=== PATIENT | female | born 1995 | race Caucasian/White ===

== ENCOUNTER 2017-04-07 06:40 | Emergency (ER) | payer OTHER ==
[~2017-04-07] VITALS: Ht 157.5 cm; Wt 56.0 kg
[~2017-04-07 06:40] MED LIST: FAMO-18 PO; ONDA4TAB35 PO
[2017-04-07 06:46] VITALS: Ht 157.5 cm; Wt 56.0 kg
[2017-04-07] MEDS ORDERED: ONDANSETRON (ODT) 4 MG TAB ODT STA (07:04)
--- NOTE | 2017-04-07 07:11 | ERD ---
ER Documentation Chief Complaint Date/Time DATE: 04/07/17 TIME: 07:08 Chief Complaint vomitig, epigastric burnning HPI This is a 22-year-old female who presents to the emergency department today complaining of vomiting that started this morning. Patient states that she thinks that she ate something bad last night and reported eating steak, green beans and rice and that is what she was throwing up. States she has been seen here in the past for similar symptoms one year ago. States that she has some burning pain. States that she also has a headache. Denies any fevers or chills , dysuria, diarrhea. States that she smokes marijuana multiple times daily. ROS All systems reviewed and are negative except as per history of present illness. Medications Home Meds Active Scripts Ondansetron Hcl* (Zofran*) 4 Mg Tablet, 4 MG PO Q6H for NAUSEA AND/OR VOMITING, #30 TAB Prov:SHERRY LITTLE PA-C 04/07/17 Famotidine* (Pepcid*) 20 Mg Tablet, 20 MG PO BID for 10 Days, TAB Prov:SHERRY LITTLE PA-C 04/07/17 Famotidine* (Pepcid*) 20 Mg Tablet, 20 MG PO BID Y for abdominal pain, #30 TAB Prov:АНДРЕЙ PALACIO MD 12/28/15 Ondansetron Hcl* (Zofran* ODT) 4 mg -ODT Tab.disper, 4 MG PO Q6 Y for NAUSEA AND /OR VOMITING, #20 TAB Prov:АНДРЕЙ PALACIO MD 12/28/15 Allergies Allergies: Coded Allergies: No Known Drug Allergies (Verified Allergy, Unknown, 12/28/15) PMhx/Soc Medical and Surgical Hx: pt denies Medical Hx, pt denies Surgical Hx Hx Alcohol Use: No Hx Substance Use: No Hx Tobacco Use: No Physical Exam Vitals Vital Signs Date Time Temp Pulse Resp B/P Pulse Ox O2 Delivery O2 Flow Rate FiO2 04/07/17 06:46 97.7 74 18 133/74 99 Physical Exam Const: No acute distress, nontoxic-appearing head: Atraumatic Eyes: Normal Conjunctiva ENT: Normal External Ears, Nose and Mouth. Neck: Full range of motion..~ No meningismus. Resp: Clear to auscultation bilaterally Cardio: Regular rate and rhythm, no murmurs Abd: Soft, epigastric tenderness non distended. Normal bowel sounds. No right lower quadrant pain. No tenderness McBurney's. Skin: No petechiae or rashes Back: No midline or flank tenderness Neur: Awake and alert Psych: Normal Mood and Affect Results 24 hrs Laboratory Tests Test 04/07/17 07:20 Bedside Urine pH (LAB) 5.5 Bedside Urine Protein (LAB) Negative Bedside Urine Glucose (UA) Negative Bedside Urine Ketones (LAB) Negative Bedside Urine Blood Trace-intact Bedside Urine Nitrite (LAB) Negative Bedside Urine Leukocyte Esterase (L Negative Current Medications Medications (Trade) Dose Ordered Sig/Homer Route PRN Reason Start Time Stop Time Status Last Admin Dose Admin Ondansetron HCl (Zofran Odt) 4 mg ONCE STAT ODT 04/07/17 07:04 04/07/17 07:05 DC 04/07/17 07:15 Famotidine (Pepcid) 20 mg ONCE ONCE PO 04/07/17 07:30 04/07/17 07:31 DC 04/07/17 07:15 Procedures/MDM This 22-year-old female who presents the emergency department today complaining of vomiting that started this morning as well as some epigastric burning and headache. I did obtain a UA and urine test UA is negative for infection. Urine test is negative. Patient had epigastric pain on physical exam. She has no right upper quadrant pain and no right lower quadrant pain or tenderness McBurney's. low suspicion for acute surgical abdomen, acute cholecystitis or acute appendicitis. Patient is afebrile and otherwise well-appearing. She was given Pepcid and Zofran here in the emergency department and a p.o. challenge and patient was able to tolerate water. Patient symptoms at this time is consistent with vomiting and epigastric pain. Possibly related to gastritis versus gastroenteritis Patient does smoke marijuana on a daily basis and I have explained her that this may also cause vomiting she was instructed to stop smoking marijuana. Patient given a prescription for Pepcid and Zofran for home. At this time the patient is stable for discharge and outpatient management. Patient should follow up with their PCP in the next 1-2 days. They may return to the emergency department sooner for any persistent or worsening of symptoms. Patient understood and agreed with the plan. Departure Diagnosis: Primary Impression: Nausea and vomiting Vomiting type: unspecified Vomiting Intractability: non-intractable Qualified Code: R11.2 - Non-intractable vomiting with nausea, unspecified vomiting type Condition: SHERRY Samaniego PA-C April 07, 2017 07:11
[2017-04-07 07:17] LABS: URINE BLOOD (Dip) POC Trace-intact (NEGATIVE)
[2017-04-07] MEDS ORDERED: FAMOTIDINE 20 MG TAB PO ONE (07:30)
[2017-04-07] MEDS ORDERED: ONDA4TAB8 PO (08:16)
[2017-04-07] MEDS ORDERED: FAMO-18 PO (08:16)
== END 2017-04-07 08:27 | disposition home or self-care (01) ==
LOC: FTE 06:40
DX: R11.2 Nausea with vomiting, unspecified (principal); R51 Headache
CPT/HCPCS: 81003; 99283